=== PATIENT | female | born 1995 | race Two or more races ===

== ENCOUNTER 2020-10-21 19:03 | Emergency (ER) | payer SELFPAY ==
[~2020-10-21] VITALS: Ht 165.1 cm; Wt 54.4 kg
[2020-10-21 20:10] LABS: Urine Bacteria FEW /hpf (None Seen); Urine Blood Negative /uL (Negative); Urine Mucus FEW (None Seen); Urine Specific Gravity 1.016 (1.001-1.035); Urine WBC 9 /hpf (0 - 5)
[2020-10-21 20:54] VITALS: BP 119/71
[2020-10-21] MEDS ORDERED: cefTRIAXone SOD 1,000 MG VL IM ONE (21:15)
[2020-10-21] MEDS ORDERED: AZITHROMYCIN 250 MG TAB PO ONE (21:15)
== END 2020-10-21 21:51 | disposition home or self-care (01) ==
LOC: ER 19:03
DX: N39.0 Urinary tract infection, site not specified (principal); N73.9 Female pelvic inflammatory disease, unspecified
CPT/HCPCS: 81001; 81025; 96372; 99284; J0696